=== PATIENT | female | born 1970 | race Caucasian/White ===

== ENCOUNTER → 2019-10-28 | Outpatient (CLI) | payer BC ==
--- NOTE | 2019-10-28 16:45 | Diagnostic Imaging Report ---
INDICATION: Right shoulder pain for one week. TIME OF EXAM: 3:40 PM 3 views of right shoulder were obtained. Glenohumeral and chronic lytic alignment are normal. Acromiohumeral space is normal. No fracture or dislocation is detected. IMPRESSION: No acute bony abnormality is detected. Dictated by: Dictated on workstation # [id number]
== END ==
LOC: RAD 14:48
PROVIDERS: ATTEND Nurse Practitioner Family
DX: M25.511 Pain in right shoulder (principal)
CPT/HCPCS: 73030

== ENCOUNTER → 2019-11-04 | Outpatient (CLI) | payer BC | LOC: RAD 13:26 | PROVIDERS: ATTEND Nurse Practitioner Family | DX: M25.511 Pain in right shoulder (principal); Z53.8 Procedure and treatment not carried out for other reasons ==